=== PATIENT | female | born 1960 | race African-American/Black ===

== ENCOUNTER 2024-01-09 19:49 | Inpatient (IN) | payer OTHER ==
[~2024-01-09] VITALS: Ht 165.1 cm; Wt 63.2 kg
[2024-01-09 20:12] LABS: BASOPHILS # (AUTO) 0.1 K/UL (0.0-0.2); BASOPHILS % (AUTO) 0.7 % (0.0-2.0); EOSINOPHILS # (AUTO) 0.2 K/uL (0.0-0.7); EOSINOPHILS % (AUTO) 1.2 % (0.0-7.0); HEMOGLOBIN 15.1 g/dL (10.9-14.3); LYMPHOCYTES # (AUTO) 3.5 K/uL (0.8-4.8); LYMPHOCYTES % (AUTO) 27.8 % (20.5-51.5); MEAN CORPUSCULAR HEMOGLOBIN 30.7 uug (24.7-32.8); MEAN CORPUSCULAR HGB CONC 34 g/dL (32.3-35.6); MEAN CORPUSCULAR VOLUME 91.7 fL (75.5-95.3); MONOCYTES # (AUTO) 0.7 K/uL (0.1-1.30); MONOCYTES % (AUTO) 5.7 % (0.0-11.0); NEUTROPHILS % (AUTO) 64.6 % (38.5-71.5); PLATELET COUNT (AUTO) 407 K/uL (179-408); RED BLOOD CELL COUNT(AUTO) 4.91 MIL/uL (3.63-4.92); RED CELL DISTRIBUTION WIDTH 13.9 % (12.3-17.7); WHITE BLOOD COUNT (AUTO) 12.5 K/uL (3.8-11.8)
[2024-01-09 20:15] LABS: DIFFERENTIAL COMMENT 1
[2024-01-09] MEDS ORDERED: IOHEXOL 350 100 ML INFUS..BTL ONE (20:16)
[2024-01-09] MEDS ORDERED: IV NORMAL SALINE 250 ML IV ONE (20:16)
[2024-01-09] MEDS ORDERED: SWABABLE VALVE TRANSFER SET EA MC ONE (20:16)
[2024-01-09 20:29] LABS: ALANINE AMINOTRANSFERASE 17 U/L (14-59); ALBUMIN 3.4 g/dL (3.4-5.0); ALKALINE PHOSPHATASE 183 U/L (50-136); ASPARTATE AMINOTRANSFERASE 9 U/L (15-37); BILIRUBIN,TOTAL 0.4 mg/dL (0.2-1.0); CALCIUM 9.2 mg/dL (8.5-10.1); CARBON DIOXIDE 26 mmol/L (21-32); CHLORIDE 97 mmol/L (98-107); CREATININE 0.9 mg/dL (0.6-1.3); POTASSIUM 3.5 mmol/L (3.5-5.1); SODIUM SERUM 134 mmol/L (136-145); TOTAL PROTEIN, SERUM 7.6 g/dL (6.4-8.2); UREA NITROGEN, BLOOD 15 mg/dL (7-18)
[2024-01-09 20:31] LABS: GLUCOSE 47 mg/dL (74-106)
[2024-01-09] MEDS: DEXTROSE 50% 50 ML DISP.SYRIN IV ONE (20:31)
[2024-01-09 20:32] LABS: BILIRUBIN,DIRECT < 0.1 mg/dL (0.0-0.2)
[2024-01-09] MEDS ORDERED: ASPIRIN 325 MG TABLET ONE (20:56)
[2024-01-09] MEDS: ASPIRIN EC 325 MG TABLET.DR PO STA (21:02)
[2024-01-09] MEDS ORDERED: INSU100V7 SQ (21:11)
[2024-01-09] MEDS ORDERED: METF-440 PO (21:11)
[2024-01-09] MEDS ORDERED: LOSA25TA27 PO (21:11)
[2024-01-10] VITALS (7 sets, daily range): BP systolic 141–179; BP diastolic 80–100; TEMP 97.3–98.6; O2SAT 98–100
[2024-01-10] MEDS ORDERED: BACLOFEN 10 MG TABLET ONE (01:14)
[2024-01-10] MEDS: BACLOFEN 10 MG TABLET PO ONE (01:17)
[2024-01-10] MEDS ORDERED: REMEDY ESSENTIAL ZINC PASTE 113 GM TP PRN (02:30)
[2024-01-10] MEDS ORDERED: MAGNESIUM HYDROXIDE 30 ML LIQUID UDC PO PRN (02:30)
[2024-01-10] MEDS ORDERED: DEXTROSE 50% 50 ML DISP.SYRIN IV PRN (02:30)
[2024-01-10] MEDS ORDERED: ONDANSETRON 4 MG/2 ML VIAL IV PRN (02:30)
[2024-01-10] MEDS: BLOOD SUGAR DIAGNOSTIC 1 EACH STRIP VI SCH (06:35)
[2024-01-10 07:13] LABS: ALBUMIN 3.2 g/dL (3.4-5.0); BILIRUBIN,TOTAL 0.4 mg/dL (0.2-1.0); CALCIUM 8.8 mg/dL (8.5-10.1); CREATININE 0.7 mg/dL (0.6-1.3); POTASSIUM 4.1 mmol/L (3.5-5.1); TOTAL PROTEIN, SERUM 7.3 g/dL (6.4-8.2)
[2024-01-10 07:25] LABS: THYROID STIMULATING HORMONE 1.014 mIU/mL (0.358-3.740)
[2024-01-10] MEDS: INSULIN REGULAR, HUMAN 300 UNIT/3 ML VIAL SQ PRN (08:04)
[2024-01-10] MEDS: ASPIRIN EC 81 MG TABLET.DR PO SCH (08:20)
[2024-01-10] MEDS: PANTOPRAZOLE SODIUM 40 MG TABLET.DR PO SCH (08:20)
[2024-01-10] MEDS: ENOXAPARIN SODIUM 40 MG/0.4 ML DISP.SYRIN SQ SCH (08:22)
[2024-01-10] MEDS: IV NS 1000 ML 1,000 ML IV PRN (14:14)
[2024-01-10 18:12] LABS: *BILIRUBIN,URIN NEGATIVE (NEGATIVE); *BLOOD, URINE NEGATIVE (NEGATIVE); *CLARITY,URINE CLEAR (CLEAR); *COLOR,URINE YELLOW (YELLOW); *KETONES,URINE NEGATIVE (NEGATIVE); *PROTEIN,URINE NEGATIVE (NEGATIVE); *UROBILINOGEN,URINE 0.2 E.U./dl (NORMAL); LEUKOCYTE ESTERASE ,URINE TRACE (NEGATIVE); NITRITE, URINE NEGATIVE (NEGATIVE); PH,URINE 5.5 (5.0-8.0); UGLUCOSE TRACE (NEGATIVE)
[2024-01-10 18:22] LABS: RBC,URINE 0-3 /HPF (0-3)
[2024-01-10] MEDS: SIMVASTATIN 40 MG TABLET PO SCH (20:28)
[2024-01-11 00:01] LABS: *SODIUM RNDM,URINE 35 mmol/L (40-220)
[2024-01-11] MEDS: CLONIDINE HCL 0.1 MG TABLET PO PRN (00:31)
[2024-01-11 02:00] VITALS: BP 160/91
[2024-01-11 04:00] VITALS: BP 186/96; TEMP 98; O2SAT 99
[2024-01-11] MEDS: HYDROCODONE/APAP 5-325MG TABLET PO PRN (04:09)
[2024-01-11 06:57] LABS: BASOPHILS # (AUTO) 0.1 K/UL (0.0-0.2); BASOPHILS % (AUTO) 0.7 % (0.0-2.0); EOSINOPHILS # (AUTO) 0.1 K/uL (0.0-0.7); EOSINOPHILS % (AUTO) 1.6 % (0.0-7.0); HEMATOCRIT 39.7 % (31.2-41.9); HEMOGLOBIN 13.8 g/dL (10.9-14.3); LYMPHOCYTES # (AUTO) 3.3 K/uL (0.8-4.8); MEAN CORPUSCULAR HEMOGLOBIN 31.5 uug (24.7-32.8); MEAN CORPUSCULAR HGB CONC 35 g/dL (32.3-35.6); MEAN CORPUSCULAR VOLUME 91.2 fL (75.5-95.3); MONOCYTES # (AUTO) 0.6 K/uL (0.1-1.30); MONOCYTES % (AUTO) 7.1 % (0.0-11.0); NEUTROPHILS # (AUTO) 4.4 K/uL (1.8-8.9); NEUTROPHILS % (AUTO) 51.6 % (38.5-71.5); PLATELET COUNT (AUTO) 382 K/uL (179-408); RED BLOOD CELL COUNT(AUTO) 4.36 MIL/uL (3.63-4.92); RED CELL DISTRIBUTION WIDTH 13.6 % (12.3-17.7); WHITE BLOOD COUNT (AUTO) 8.4 K/uL (3.8-11.8)
[2024-01-11 07:01] LABS: MAGNESIUM 1.9 mg/dL (1.8-2.4); PHOSPHOROUS 3.8 mg/dL (2.5-4.9); URIC ACID 2.9 mg/dL (2.6-6.0)
[2024-01-11 07:05] LABS: DIFFERENTIAL COMMENT 1
[2024-01-11 07:15] LABS: CALCIUM 8.4 mg/dL (8.5-10.1); CREATININE 0.6 mg/dL (0.6-1.3); POTASSIUM 4.4 mmol/L (3.5-5.1)
[2024-01-11 07:23] LABS: THYROID STIMULATING HORMONE 2.32 mIU/mL (0.358-3.740)
[2024-01-11 07:30] VITALS: BP 178/97; TEMP 97.8; O2SAT 99
[2024-01-11 11:38] VITALS: BP 172/85; TEMP 97.8; O2SAT 100
[2024-01-11] MEDS: hydrALAZINE HCL 25 MG TABLET PO PRN (13:39)
[2024-01-11 16:00] VITALS: BP 195/98; TEMP 98.6; O2SAT 98
[2024-01-11 19:25] VITALS: BP 177/67; TEMP 97.8; O2SAT 99
[2024-01-11] MEDS: INSULIN GLARGINE,HUM 300 UNITS/3 ML CARTRIDGE SQ SCH (20:33)
[2024-01-12 00:16] VITALS: BP 139/72; TEMP 98.2; O2SAT 99
[2024-01-12 04:59] VITALS: BP 191/97; TEMP 98.1; O2SAT 100
[2024-01-12] MEDS: ACETAMINOPHEN 325 MG TABLET PO PRN (05:02)
[2024-01-12 08:00] VITALS: BP 137/93; TEMP 98.1; O2SAT 98
[2024-01-12] MEDS: LOSARTAN POTASSIUM 50 MG TABLET PO SCH (08:23)
[2024-01-12] MEDS ORDERED: LOSA50TA3 PO (11:18)
[2024-01-12] MEDS ORDERED: ASPI-618 PO (11:18)
[2024-01-12] MEDS ORDERED: INSU100V SQ (11:18)
[2024-01-12] MEDS ORDERED: AMLO-212 PO (11:18)
[2024-01-12] MEDS ORDERED: HYDR-894 PO (11:18)
[2024-01-12] MEDS ORDERED: SIMV-49 PO (11:18)
[2024-01-12 12:00] VITALS: BP 152/83; TEMP 98.1; O2SAT 100
[2024-01-12] MEDS: INSULIN LISPRO 300 UNIT/3 ML VIAL SQ SCH (12:23)
[2024-01-12] MEDS: hydrALAZINE HCL 50 MG TABLET PO SCH (13:06)
[2024-01-12 16:00] VITALS: BP 166/84; TEMP 98.1; O2SAT 98
[2024-01-12] MEDS: AMLODIPINE 5 MG TABLET PO SCH (20:45)
[2024-01-12 21:40] VITALS: BP 131/71; TEMP 98.2; O2SAT 99
[2024-01-13 04:43] VITALS: BP 151/77; TEMP 97.8; O2SAT 100
[2024-01-13 07:20] VITALS: BP 150/81; TEMP 98.1; O2SAT 97
[2024-01-13 08:00] VITALS: BP 104/67; TEMP 97.5; O2SAT 97
[2024-01-13 11:25] VITALS: BP 128/65; TEMP 98.6; O2SAT 100
== END 2024-01-13 12:50 | disposition home or self-care (01) | DRG 45 ==
LOC: ER 19:51 → TELE3 01-10 03:00 → MEDSURG3 01-11 08:15
PROVIDERS: ADMIT Nurse Practitioner Acute Care; ATTEND Nurse Practitioner Acute Care
DX: I63.81 Other cerebral infarction due to occlusion or stenosis of small artery (principal); I21.A1 Myocardial infarction type 2; E11.649 Type 2 diabetes mellitus with hypoglycemia without coma; E22.2 Syndrome of inappropriate secretion of antidiuretic hormone; D32.9 Benign neoplasm of meninges, unspecified; D75.1 Secondary polycythemia; E78.5 Hyperlipidemia, unspecified; E11.65 Type 2 diabetes mellitus with hyperglycemia; I10 Essential (primary) hypertension; R29.810 Facial weakness; R47.81 Slurred speech; R29.707 NIHSS score 7; M79.601 Pain in right arm; Z91.81 History of falling; Z79.4 Long term (current) use of insulin; Z90.49 Acquired absence of other specified parts of digestive tract; Z79.84 Long term (current) use of oral hypoglycemic drugs; Z79.899 Other long term (current) drug therapy; I48.91 Unspecified atrial fibrillation; Z88.0 Allergy status to penicillin; Z86.73 Personal history of transient ischemic attack (TIA), and cerebral infarction without residual deficits; N28.9 Disorder of kidney and ureter, unspecified; I65.21 Occlusion and stenosis of right carotid artery
CPT/HCPCS: 36415; 70450; 70496; 70551; 71045; 73060; 83735; 84100; 84300; 84443; 84484; 84550; 85025; 85651; 85730; 93005; 93307; G0378; J1650; J1815; J7040; Q9967

== ENCOUNTER 2024-01-25 20:20 | Inpatient (IN) | payer OTHER ==
[~2024-01-25] VITALS: Ht 160 cm; Wt 64.0 kg
[~2024-01-25 20:20] MED LIST: AMLO-212 PO; ASPI-618 PO; HYDR-894 PO; INSU100V SQ; INSU100V7 SQ; LOSA50TA3 PO; METF-440 PO; SIMV-49 PO
[2024-01-25] MEDS ORDERED: KETOROLAC TROMETHAMINE 30 MG INJ ONE (21:00)
[2024-01-25] MEDS ORDERED: hydrALAZINE HCL 20 MG/1 ML VIAL ONE (21:00)
[2024-01-25 21:03] LABS: BASOPHILS # (AUTO) 0.1 K/UL (0.0-0.2); BASOPHILS % (AUTO) 0.7 % (0.0-2.0); EOSINOPHILS # (AUTO) 0.2 K/uL (0.0-0.7); EOSINOPHILS % (AUTO) 1.1 % (0.0-7.0); HEMATOCRIT 39.8 % (31.2-41.9); HEMOGLOBIN 13.5 g/dL (10.9-14.3); LYMPHOCYTES # (AUTO) 2.5 K/uL (0.8-4.8); LYMPHOCYTES % (AUTO) 18.8 % (20.5-51.5); MEAN CORPUSCULAR HEMOGLOBIN 30.7 uug (24.7-32.8); MEAN CORPUSCULAR HGB CONC 34 g/dL (32.3-35.6); MEAN CORPUSCULAR VOLUME 90.1 fL (75.5-95.3); MONOCYTES # (AUTO) 1.4 K/uL (0.1-1.30); MONOCYTES % (AUTO) 10.1 % (0.0-11.0); NEUTROPHILS # (AUTO) 9.3 K/uL (1.8-8.9); NEUTROPHILS % (AUTO) 69.3 % (38.5-71.5); PLATELET COUNT (AUTO) 346 K/uL (179-408); RED BLOOD CELL COUNT(AUTO) 4.41 MIL/uL (3.63-4.92); RED CELL DISTRIBUTION WIDTH 13.5 % (12.3-17.7); WHITE BLOOD COUNT (AUTO) 13.4 K/uL (3.8-11.8)
[2024-01-25] MEDS: KETOROLAC TROMETHAMINE 30 MG INJ IVP ONE (21:06)
[2024-01-25] MEDS: hydrALAZINE HCL 20 MG/1 ML VIAL IV ONE (21:06)
[2024-01-25 21:07] LABS: DIFFERENTIAL COMMENT 1
[2024-01-25 21:14] LABS: CALCIUM 9.1 mg/dL (8.5-10.1); CARBON DIOXIDE 27 mmol/L (21-32); CHLORIDE 94 mmol/L (98-107); CREATININE 0.7 mg/dL (0.6-1.3); GLUCOSE 229 mg/dL (74-106); POTASSIUM 4.5 mmol/L (3.5-5.1); SODIUM SERUM 132 mmol/L (136-145); UREA NITROGEN, BLOOD 15 mg/dL (7-18)
[2024-01-25 21:30] LABS: ALANINE AMINOTRANSFERASE 16 U/L (14-59); ALBUMIN 3.4 g/dL (3.4-5.0); ALKALINE PHOSPHATASE 182 U/L (50-136); ASPARTATE AMINOTRANSFERASE < 5 U/L (15-37); BILIRUBIN,TOTAL 0.3 mg/dL (0.2-1.0); NT-PRO BNP 198 pg/mL (0-125); TOTAL PROTEIN, SERUM 7.6 g/dL (6.4-8.2)
[2024-01-25 21:40] LABS: ETHANOL < 3 MG/DL (0-10)
[2024-01-25] MEDS ORDERED: ASPIRIN 325 MG TABLET ONE (21:44)
[2024-01-25] MEDS: ASPIRIN 325 MG TABLET PO ONE (21:51)
[2024-01-25] MEDS ORDERED: CLONIDINE HCL 0.1 MG TABLET ONE (22:48)
[2024-01-25] MEDS ORDERED: GABAPENTIN 300 MG CAPSULE ONE (22:48)
[2024-01-25] MEDS: GABAPENTIN 300 MG CAPSULE PO ONE (23:02)
[2024-01-25] MEDS: CLONIDINE HCL 0.1 MG TABLET PO ONE (23:03)
[2024-01-25] MEDS ORDERED: HYDROCODONE/APAP 5-325MG TABLET ONE (23:32)
[2024-01-25] MEDS: HYDROCODONE/APAP 5-325MG TABLET PO ONE (23:34)
[2024-01-26 00:09] LABS: *COLOR,URINE YELLOW (YELLOW); *KETONES,URINE 1+ (NEGATIVE); *PROTEIN,URINE 1+ (NEGATIVE); *UROBILINOGEN,URINE 0.2 E.U./dl (NORMAL); LEUKOCYTE ESTERASE ,URINE 1+ (NEGATIVE); NITRITE, URINE NEGATIVE (NEGATIVE); PH,URINE 5.5 (5.0-8.0)
[2024-01-26 00:26] LABS: *AMPHETAMINE, URINE NEGATIVE (NEGATIVE); *BARBITURATE, URINE NEGATIVE (NEGATIVE); *BENZODIAZEPINE, URINE NEGATIVE (NEGATIVE); *CANNABINOID, URINE POSITIVE (NEGATIVE); *COCCAINE, URINE POSITIVE (NEGATIVE); *OPIATE, URINE NEGATIVE (NEGATIVE); *PHENCYCLIDINE SCREEN,URINE NEGATIVE (NEGATIVE)
[2024-01-26 00:34] LABS: *BILIRUBIN,URIN 1+ (NEGATIVE); *BLOOD, URINE TRACE (NEGATIVE); UGLUCOSE 2+ (NEGATIVE)
[2024-01-26 00:57] LABS: FENTANYL, URINE NEGATIVE (NEGATIVE)
[2024-01-26 01:33] LABS: RBC,URINE TNTC /HPF (0-3); WBC,URINE TNTC /HPF (0-3)
[2024-01-26 01:34] LABS: BACTERIA,URINE MODERATE /HPF (NONE SEEN); SQUAMOUS EPITHELIAL CELL,UR MODERATE /HPF (NONE SEEN); YEAST,URINE FEW /HPF (NONE SEEN)
[2024-01-26 01:35] LABS: CALCIUM OXALATE CRYSTALS,UR FEW /HPF (NONE SEEN)
[2024-01-26] MEDS ORDERED: ATOR10TA PO (01:43)
[2024-01-26] MEDS ORDERED: ACETAMINOPHEN 325 MG TABLET PO PRN (01:45)
[2024-01-26] MEDS ORDERED: MAGNESIUM HYDROXIDE 30 ML LIQUID UDC PO PRN (01:45)
[2024-01-26] MEDS ORDERED: REMEDY ESSENTIAL ZINC PASTE 113 GM TP PRN (01:45)
[2024-01-26] MEDS ORDERED: ONDANSETRON 4 MG/2 ML VIAL IV PRN (01:45)
[2024-01-26] MEDS ORDERED: HYDROCODONE/APAP 5-325MG TABLET PO PRN (01:45)
[2024-01-26] MEDS ORDERED: hydrALAZINE HCL 20 MG/1 ML VIAL IV ONE (01:45)
[2024-01-26 02:13] LABS: *SODIUM RNDM,URINE 33 mmol/L (40-220)
[2024-01-26] MEDS ORDERED: DEXTROSE 50% 50 ML DISP.SYRIN IV PRN (02:15)
[2024-01-26] MEDS ORDERED: hydrALAZINE HCL 25 MG TABLET PO PRN (02:15)
[2024-01-26 03:36] VITALS: BP 137/69; TEMP 97.6; O2SAT 100
[2024-01-26] MEDS: FLUCONAZOLE 100 MG TABLET PO ONE (03:39)
[2024-01-26 05:33] VITALS: BP 153/82; TEMP 97.5; O2SAT 99
[2024-01-26] MEDS: IV NS 1000 ML 1,000 ML IV PRN (06:01)
[2024-01-26] MEDS: BLOOD SUGAR DIAGNOSTIC 1 EACH STRIP VI SCH (06:34)
[2024-01-26 08:00] VITALS: BP 168/89; TEMP 97.1; O2SAT 97
[2024-01-26] MEDS: METFORMIN HCL 500 MG TABLET PO SCH (09:05)
[2024-01-26] MEDS: PANTOPRAZOLE SODIUM 40 MG VIAL IV SCH (09:05)
[2024-01-26] MEDS: ASPIRIN EC 81 MG TABLET.DR PO SCH (09:06)
[2024-01-26] MEDS: LOSARTAN POTASSIUM 50 MG TABLET PO SCH (09:06)
[2024-01-26] MEDS: INSULIN REGULAR, HUMAN 300 UNIT/3 ML VIAL SQ PRN (09:08)
[2024-01-26] MEDS ORDERED: hydrALAZINE HCL 20 MG/1 ML VIAL IV PRN (09:45)
[2024-01-26] MEDS: HYDROCODONE/APAP 10-325 MG TABLET PO PRN (09:47)
[2024-01-26 12:00] VITALS: BP 146/76; TEMP 97.8; O2SAT 100
[2024-01-26] MEDS: CEFTRIAXONE 1 G in IV DEXTROSE 5% 50 ML IV SCH (12:34)
[2024-01-26 16:00] VITALS: BP 106/59; TEMP 98.1; O2SAT 100
[2024-01-26 20:00] VITALS: BP 140/60; TEMP 98.6; O2SAT 100
[2024-01-26] MEDS ORDERED: ATORVASTATIN 10 MG TABLET PO SCH (21:00)
[2024-01-26] MEDS: ATORVASTATIN 20 MG TABLET PO SCH (21:19)
[2024-01-26] MEDS: AMLODIPINE 5 MG TABLET PO SCH (21:20)
[2024-01-27 05:20] VITALS: BP 165/85; TEMP 98.2; O2SAT 100
[2024-01-27] MEDS ORDERED: hydrALAZINE HCL 25 MG TABLET PO PRN (05:30)
[2024-01-27 07:36] LABS: BASOPHILS % (AUTO) 0.5 % (0.0-2.0); EOSINOPHILS # (AUTO) 0.2 K/uL (0.0-0.7); EOSINOPHILS % (AUTO) 1.7 % (0.0-7.0); HEMATOCRIT 40.7 % (31.2-41.9); HEMOGLOBIN 14.1 g/dL (10.9-14.3); LYMPHOCYTES # (AUTO) 2.3 K/uL (0.8-4.8); LYMPHOCYTES % (AUTO) 23.3 % (20.5-51.5); MEAN CORPUSCULAR HEMOGLOBIN 31.7 uug (24.7-32.8); MEAN CORPUSCULAR HGB CONC 35 g/dL (32.3-35.6); MEAN CORPUSCULAR VOLUME 91.3 fL (75.5-95.3); MONOCYTES # (AUTO) 0.8 K/uL (0.1-1.30); MONOCYTES % (AUTO) 8.3 % (0.0-11.0); NEUTROPHILS # (AUTO) 6.6 K/uL (1.8-8.9); NEUTROPHILS % (AUTO) 66.2 % (38.5-71.5); PLATELET COUNT (AUTO) 334 K/uL (179-408); RED BLOOD CELL COUNT(AUTO) 4.45 MIL/uL (3.63-4.92); RED CELL DISTRIBUTION WIDTH 13.7 % (12.3-17.7)
[2024-01-27 07:45] LABS: DIFFERENTIAL COMMENT 1
[2024-01-27 07:49] VITALS: BP 146/78; TEMP 97.8; O2SAT 99
[2024-01-27 07:51] LABS: CALCIUM 8.7 mg/dL (8.5-10.1); CARBON DIOXIDE 27 mmol/L (21-32); CHLORIDE 95 mmol/L (98-107); CREATININE 0.5 mg/dL (0.6-1.3); GLUCOSE 184 mg/dL (74-106); MAGNESIUM 1.9 mg/dL (1.8-2.4); POTASSIUM 4.4 mmol/L (3.5-5.1); SODIUM SERUM 131 mmol/L (136-145); UREA NITROGEN, BLOOD 8 mg/dL (7-18)
[2024-01-27] MEDS ORDERED: METFORMIN HCL 500 MG TABLET PO SCH (08:00)
[2024-01-27 08:52] VITALS: BP 146/78
[2024-01-27] MEDS ORDERED: SULF1TAB48 PO (10:25)
[2024-01-27] MEDS ORDERED: ATORVASTATIN 20 MG TABLET PO SCH (21:00)
[2024-02-03] MEDS ORDERED: ATOR20TA PO (12:52)
[2024-02-03] MEDS ORDERED: CEPH500C2 PO (12:52)
[2024-02-03] MEDS ORDERED: PANT40TA49 PO (12:52)
[2024-02-03] MEDS ORDERED: DIVA125T2 PO (12:52)
== END 2024-01-27 13:15 | disposition home or self-care (01) | DRG 199 ==
LOC: ER 20:24 → TELE3 01-26 01:35
DX: I10 Essential (primary) hypertension (principal); E87.1 Hypo-osmolality and hyponatremia; N39.0 Urinary tract infection, site not specified; R79.89 Other specified abnormal findings of blood chemistry; M79.621 Pain in right upper arm; M25.511 Pain in right shoulder; R07.89 Other chest pain; F03.92 Unspecified dementia, unspecified severity, with psychotic disturbance; F12.90 Cannabis use, unspecified, uncomplicated; F14.90 Cocaine use, unspecified, uncomplicated; E11.65 Type 2 diabetes mellitus with hyperglycemia; I48.91 Unspecified atrial fibrillation; Z91.81 History of falling; E78.5 Hyperlipidemia, unspecified; E11.9 Type 2 diabetes mellitus without complications; Z79.84 Long term (current) use of oral hypoglycemic drugs; Z91.199 Patient's noncompliance with other medical treatment and regimen due to unspecified reason; Z79.4 Long term (current) use of insulin; Z79.82 Long term (current) use of aspirin; Z79.899 Other long term (current) drug therapy; Z88.0 Allergy status to penicillin; Z86.73 Personal history of transient ischemic attack (TIA), and cerebral infarction without residual deficits; Z91.148 Patient's other noncompliance with medication regimen for other reason
CPT/HCPCS: 36415; 70450; 71045; 73060; 73090; 83605; 83735; 84100; 84300; 84484; 85025; 93005; A4606; A4663; C9113; G0378; G0480; J0360; J0696; J1815; J1885; J7040

== ENCOUNTER 2024-01-30 06:38 | Inpatient (IN) | payer OTHER ==
[~2024-01-30] VITALS: Ht 160 cm; Wt 63.5 kg
[~2024-01-30 06:38] MED LIST changes: +ATOR10TA PO; +SULF1TAB48 PO
[2024-01-30 08:04] LABS: BASOPHILS # (AUTO) 0.1 K/UL (0.0-0.2); BASOPHILS % (AUTO) 0.7 % (0.0-2.0); DIFFERENTIAL COMMENT 1; EOSINOPHILS # (AUTO) 0.1 K/uL (0.0-0.7); EOSINOPHILS % (AUTO) 1.1 % (0.0-7.0); HEMATOCRIT 40.5 % (31.2-41.9); LYMPHOCYTES # (AUTO) 1.9 K/uL (0.8-4.8); LYMPHOCYTES % (AUTO) 19.1 % (20.5-51.5); MEAN CORPUSCULAR HEMOGLOBIN 31.6 uug (24.7-32.8); MEAN CORPUSCULAR HGB CONC 35 g/dL (32.3-35.6); MEAN CORPUSCULAR VOLUME 91.5 fL (75.5-95.3); MONOCYTES # (AUTO) 0.8 K/uL (0.1-1.30); MONOCYTES % (AUTO) 7.9 % (0.0-11.0); NEUTROPHILS % (AUTO) 71.2 % (38.5-71.5); PLATELET COUNT (AUTO) 353 K/uL (179-408); RED BLOOD CELL COUNT(AUTO) 4.43 MIL/uL (3.63-4.92); RED CELL DISTRIBUTION WIDTH 13.6 % (12.3-17.7); WHITE BLOOD COUNT (AUTO) 9.9 K/uL (3.8-11.8)
[2024-01-30 08:11] LABS: CALCIUM 9.1 mg/dL (8.5-10.1); CARBON DIOXIDE 29 mmol/L (21-32); CHLORIDE 93 mmol/L (98-107); CREATININE 0.8 mg/dL (0.6-1.3); POTASSIUM 4.1 mmol/L (3.5-5.1); SODIUM SERUM 130 mmol/L (136-145); UREA NITROGEN, BLOOD 12 mg/dL (7-18)
[2024-01-30 08:14] LABS: GLUCOSE 426 mg/dL (74-106)
[2024-01-30 08:17] LABS: ETHANOL < 3 MG/DL (0-10)
[2024-01-30 08:20] LABS: ALANINE AMINOTRANSFERASE 17 U/L (14-59); ALBUMIN 3.2 g/dL (3.4-5.0); ALKALINE PHOSPHATASE 179 U/L (50-136); ASPARTATE AMINOTRANSFERASE < 5 U/L (15-37); BILIRUBIN,TOTAL 0.4 mg/dL (0.2-1.0); TOTAL PROTEIN, SERUM 7.5 g/dL (6.4-8.2)
[2024-01-30 08:22] LABS: BILIRUBIN,DIRECT < 0.1 mg/dL (0.0-0.2)
[2024-01-30] MEDS: IV NORMAL SALINE 1000 ML BAG IV ONE (08:26)
[2024-01-30] MEDS ORDERED: INSULIN LISPRO 300 UNIT/3 ML VIAL SQ ONE (08:47)
[2024-01-30] MEDS ORDERED: ASPIRIN 81 MG TAB.CHEW ONE (08:47)
[2024-01-30] MEDS ORDERED: INSULIN GLARGINE,HUM 300 UNITS/3 ML CARTRIDGE SQ ONE (08:48)
[2024-01-30] MEDS: INSULIN GLARGINE,HUM 300 UNITS/3 ML CARTRIDGE SQ SCH ×2 (09:01→21:55)
[2024-01-30] MEDS: INSULIN REGULAR, HUMAN 300 UNIT/3 ML VIAL SQ ONE ×2 (09:02→09:56)
[2024-01-30] MEDS: ASPIRIN 81 MG TAB.CHEW PO ONE (09:04)
[2024-01-30] MEDS ORDERED: ENOXAPARIN SODIUM 60 MG/0.6 ML DISP.SYRIN SQ ONE ×2 (09:09→18:00)
[2024-01-30] MEDS: ENOXAPARIN SODIUM 60 MG/0.6 ML DISP.SYRIN SQ ONE (09:22)
[2024-01-30] MEDS ORDERED: diphenhydrAMINE 50 MG/1 ML VIAL ONE (09:38)
[2024-01-30] MEDS ORDERED: LORAZEPAM 2 MG/1 ML VIAL ONE (09:39)
[2024-01-30] MEDS: LORAZEPAM 2 MG/1 ML VIAL IV ONE (09:43)
[2024-01-30] MEDS: diphenhydrAMINE 50 MG/1 ML VIAL IV ONE (09:43)
[2024-01-30 09:53] LABS: *BILIRUBIN,URIN NEGATIVE (NEGATIVE); *CLARITY,URINE CLEAR (CLEAR); *COLOR,URINE YELLOW (YELLOW); *KETONES,URINE NEGATIVE (NEGATIVE); *PROTEIN,URINE NEGATIVE (NEGATIVE); *UROBILINOGEN,URINE 0.2 E.U./dl (NORMAL); LEUKOCYTE ESTERASE ,URINE 1+ (NEGATIVE); NITRITE, URINE NEGATIVE (NEGATIVE); PH,URINE 6.5 (5.0-8.0); UGLUCOSE 3+ (NEGATIVE)
[2024-01-30 09:57] LABS: *BLOOD, URINE TRACE (NEGATIVE)
[2024-01-30 10:07] LABS: AMMONIA < 10 umol/L (11-32)
[2024-01-30 10:23] LABS: *AMPHETAMINE, URINE NEGATIVE (NEGATIVE); *BARBITURATE, URINE NEGATIVE (NEGATIVE); *BENZODIAZEPINE, URINE NEGATIVE (NEGATIVE); *CANNABINOID, URINE POSITIVE (NEGATIVE); *COCCAINE, URINE NEGATIVE (NEGATIVE); *OPIATE, URINE NEGATIVE (NEGATIVE); *PHENCYCLIDINE SCREEN,URINE NEGATIVE (NEGATIVE)
[2024-01-30 10:24] LABS: FENTANYL, URINE NEGATIVE (NEGATIVE)
[2024-01-30 10:30] LABS: BACTERIA,URINE FEW /HPF (NONE SEEN); RBC,URINE 0-3 /HPF (0-3); SQUAMOUS EPITHELIAL CELL,UR FEW /HPF (NONE SEEN)
[2024-01-30 10:37] LABS: ACETAMINOPHEN < 10.0 ug/mL (10-30)
[2024-01-30] MEDS ORDERED: ONDANSETRON 4 MG/2 ML VIAL IV PRN (16:45)
[2024-01-30] MEDS ORDERED: ACETAMINOPHEN 325 MG TABLET PO PRN (16:45)
[2024-01-30] MEDS ORDERED: MAGNESIUM HYDROXIDE 30 ML LIQUID UDC PO PRN (16:45)
[2024-01-30] MEDS: METFORMIN HCL 500 MG TABLET PO SCH (17:58)
[2024-01-30] MEDS ORDERED: INSULIN LISPRO 1000 UNITS/10 ML VIAL(HUMALOG) SQ SCH (18:00)
[2024-01-30] MEDS: INSULIN REGULAR, HUMAN 300 UNITS/3 ML VIAL SQ SCH (18:00)
[2024-01-30] MEDS: CEFTRIAXONE 1 G in IV DEXTROSE 5% 50 ML IV SCH (18:12)
[2024-01-30] MEDS: LORAZEPAM 2 MG/1 ML VIAL IV PRN (19:12)
[2024-01-30 20:15] VITALS: BP 154/96; TEMP 97.6; O2SAT 100
[2024-01-30] MEDS ORDERED: OLANZAPINE 10 MG VIAL IM PRN (21:30)
[2024-01-30] MEDS: SIMVASTATIN 40 MG TABLET PO SCH (21:37)
[2024-01-30] MEDS: TEMAZEPAM 15 MG CAPSULE PO PRN (21:39)
[2024-01-30] MEDS: AMLODIPINE 5 MG TABLET PO SCH (21:39)
[2024-01-31 00:57] VITALS: BP 190/104; TEMP 97.5; O2SAT 98
[2024-01-31] MEDS: hydrALAZINE HCL 25 MG TABLET PO PRN (00:59)
[2024-01-31 04:00] VITALS: BP 196/93; TEMP 97.4; O2SAT 95
[2024-01-31] MEDS: CLONIDINE HCL 0.1 MG TABLET PO ONE (04:41)
[2024-01-31 07:16] LABS: BASOPHILS # (AUTO) 0.1 K/UL (0.0-0.2); BASOPHILS % (AUTO) 0.6 % (0.0-2.0); EOSINOPHILS # (AUTO) 0.2 K/uL (0.0-0.7); EOSINOPHILS % (AUTO) 2.2 % (0.0-7.0); HEMATOCRIT 39.4 % (31.2-41.9); HEMOGLOBIN 13.4 g/dL (10.9-14.3); LYMPHOCYTES # (AUTO) 2.7 K/uL (0.8-4.8); LYMPHOCYTES % (AUTO) 31.3 % (20.5-51.5); MEAN CORPUSCULAR HEMOGLOBIN 30.8 uug (24.7-32.8); MEAN CORPUSCULAR HGB CONC 34 g/dL (32.3-35.6); MEAN CORPUSCULAR VOLUME 90.7 fL (75.5-95.3); MONOCYTES # (AUTO) 0.7 K/uL (0.1-1.30); MONOCYTES % (AUTO) 8.6 % (0.0-11.0); NEUTROPHILS # (AUTO) 4.9 K/uL (1.8-8.9); NEUTROPHILS % (AUTO) 57.3 % (38.5-71.5); PLATELET COUNT (AUTO) 343 K/uL (179-408); RED BLOOD CELL COUNT(AUTO) 4.34 MIL/uL (3.63-4.92); RED CELL DISTRIBUTION WIDTH 13.6 % (12.3-17.7); WHITE BLOOD COUNT (AUTO) 8.6 K/uL (3.8-11.8)
[2024-01-31] MEDS: PANTOPRAZOLE SODIUM 40 MG TABLET.DR PO SCH (07:46)
[2024-01-31 07:49] LABS: DIFFERENTIAL COMMENT 1
[2024-01-31 07:53] LABS: THYROID STIMULATING HORMONE 1.274 mIU/mL (0.358-3.740)
[2024-01-31 07:57] LABS: BILIRUBIN,TOTAL 0.4 mg/dL (0.2-1.0); CALCIUM 8.8 mg/dL (8.5-10.1); CREATININE 0.6 mg/dL (0.6-1.3); MAGNESIUM 2.1 mg/dL (1.8-2.4); PHOSPHOROUS 4.7 mg/dL (2.5-4.9); POTASSIUM 3.8 mmol/L (3.5-5.1)
[2024-01-31 08:00] VITALS: BP 171/103; TEMP 98.4; O2SAT 100
[2024-01-31] MEDS: ASPIRIN EC 81 MG TABLET.DR PO SCH (09:17)
[2024-01-31] MEDS: LOSARTAN POTASSIUM 50 MG TABLET PO SCH (09:20)
[2024-01-31] MEDS: DIVALPROEX 125 MG TABLET.DR PO SCH (11:36)
[2024-01-31 12:09] VITALS: BP 169/82; TEMP 98.4; O2SAT 99
[2024-01-31 15:00] VITALS: BP 131/79; TEMP 98.6; O2SAT 99
[2024-01-31] MEDS: METFORMIN HCL 500 MG TABLET PO SCH (17:23)
[2024-01-31 20:15] VITALS: BP 161/79; TEMP 98.2; O2SAT 100
[2024-01-31] MEDS: ATORVASTATIN 20 MG TABLET PO SCH (20:44)
[2024-01-31] MEDS ORDERED: SIMVASTATIN 40 MG TABLET PO SCH (21:00)
[2024-01-31 21:53] LABS: *SODIUM RNDM,URINE 75 mmol/L (40-220)
[2024-02-01 00:34] VITALS: BP 150/89; TEMP 97.7; O2SAT 95
[2024-02-01 04:25] VITALS: BP 142/80; TEMP 97.9; O2SAT 96
[2024-02-01 07:03] LABS: CALCIUM 8.8 mg/dL (8.5-10.1); CREATININE 0.6 mg/dL (0.6-1.3); PHOSPHOROUS 4.3 mg/dL (2.5-4.9); POTASSIUM 4.2 mmol/L (3.5-5.1)
[2024-02-01 09:00] VITALS: BP 112/62; TEMP 97.9; O2SAT 99
[2024-02-01 12:01] VITALS: BP 133/66; TEMP 97.9; O2SAT 100
[2024-02-01 16:00] VITALS: BP 136/75; TEMP 97.9; O2SAT 100
[2024-02-01] MEDS: CEphaleXIN 500 MG CAPSULE PO SCH (16:25)
[2024-02-01] MEDS: BLOOD SUGAR DIAGNOSTIC 1 EACH STRIP VI SCH (17:22)
[2024-02-01 20:00] VITALS: BP 155/76; TEMP 97.6; O2SAT 99
[2024-02-01] MEDS: INSULIN GLARGINE,HUM 300 UNITS/3 ML CARTRIDGE SQ SCH (21:46)
[2024-02-02] VITALS: BP 146/83; TEMP 98.4; O2SAT 100
[2024-02-02 04:00] VITALS: BP 147/85; TEMP 97.8; O2SAT 98
[2024-02-02 07:29] VITALS: BP 137/83; TEMP 97.8; O2SAT 100
[2024-02-02 15:01] VITALS: BP 115/54; TEMP 97.6; O2SAT 100
[2024-02-03] VITALS: BP 141/81; TEMP 97.3; O2SAT 97
[2024-02-03 06:00] VITALS: BP 164/80; TEMP 98.3; O2SAT 100
[2024-02-03 07:49] LABS: BASOPHILS # (AUTO) 0.1 K/UL (0.0-0.2); BASOPHILS % (AUTO) 0.6 % (0.0-2.0); EOSINOPHILS # (AUTO) 0.1 K/uL (0.0-0.7); EOSINOPHILS % (AUTO) 1.5 % (0.0-7.0); HEMATOCRIT 37.8 % (31.2-41.9); LYMPHOCYTES # (AUTO) 2.7 K/uL (0.8-4.8); LYMPHOCYTES % (AUTO) 27.5 % (20.5-51.5); MEAN CORPUSCULAR HEMOGLOBIN 31.6 uug (24.7-32.8); MEAN CORPUSCULAR HGB CONC 34 g/dL (32.3-35.6); MEAN CORPUSCULAR VOLUME 91.9 fL (75.5-95.3); MONOCYTES # (AUTO) 0.9 K/uL (0.1-1.30); MONOCYTES % (AUTO) 9.8 % (0.0-11.0); NEUTROPHILS # (AUTO) 5.8 K/uL (1.8-8.9); NEUTROPHILS % (AUTO) 60.6 % (38.5-71.5); PLATELET COUNT (AUTO) 339 K/uL (179-408); RED BLOOD CELL COUNT(AUTO) 4.12 MIL/uL (3.63-4.92); RED CELL DISTRIBUTION WIDTH 13.4 % (12.3-17.7); WHITE BLOOD COUNT (AUTO) 9.6 K/uL (3.8-11.8)
[2024-02-03 07:51] VITALS: BP 156/89; TEMP 97.6; O2SAT 98
[2024-02-03 07:53] LABS: DIFFERENTIAL COMMENT 1
[2024-02-03 07:56] LABS: CALCIUM 8.7 mg/dL (8.5-10.1); CREATININE 0.7 mg/dL (0.6-1.3); MAGNESIUM 1.8 mg/dL (1.8-2.4); PHOSPHOROUS 4.4 mg/dL (2.5-4.9); POTASSIUM 4.3 mmol/L (3.5-5.1)
[2024-02-03 08:10] VITALS: BP 156/89
[2024-02-03] MEDS ORDERED: PANT40TA49 PO (12:52)
[2024-02-03] MEDS ORDERED: ATOR20TA PO (12:52)
[2024-02-03] MEDS ORDERED: CEPH500C2 PO (12:52)
[2024-02-03] MEDS ORDERED: DIVA125T2 PO (12:52)
== END 2024-02-03 15:00 | disposition home or self-care (01) | DRG 190 ==
LOC: ER 06:41 → TELE3 13:46 → MEDSURG3 02-02 09:15
PROVIDERS: ADMIT Internal Medicine; ATTEND Internal Medicine
DX: I21.4 Non-ST elevation (NSTEMI) myocardial infarction (principal); G92.8 Other toxic encephalopathy; E87.1 Hypo-osmolality and hyponatremia; E11.65 Type 2 diabetes mellitus with hyperglycemia; F01.52 Vascular dementia, unspecified severity, with psychotic disturbance; N39.0 Urinary tract infection, site not specified; Z91.148 Patient's other noncompliance with medication regimen for other reason; Z86.73 Personal history of transient ischemic attack (TIA), and cerebral infarction without residual deficits; I25.2 Old myocardial infarction; I48.0 Paroxysmal atrial fibrillation; I10 Essential (primary) hypertension; F01.54 Vascular dementia, unspecified severity, with anxiety; Z79.4 Long term (current) use of insulin; Z79.82 Long term (current) use of aspirin; Z79.899 Other long term (current) drug therapy; Z88.0 Allergy status to penicillin; Z90.49 Acquired absence of other specified parts of digestive tract; Z79.84 Long term (current) use of oral hypoglycemic drugs; I25.10 Atherosclerotic heart disease of native coronary artery without angina pectoris; F19.10 Other psychoactive substance abuse, uncomplicated; F12.10 Cannabis abuse, uncomplicated; R29.6 Repeated falls; Z91.81 History of falling
CPT/HCPCS: 36415; 70450; 71045; 73130; 83735; 84100; 84300; 84443; 84484; 84550; 85025; 85610; 85730; 93005; 93307; A4606; A4663; G0378; G0480; J0696; J1200; J1650; J1815; J2060; J7040